=== PATIENT | female | born 1950 | race Two or more races ===

== ENCOUNTER 2022-08-10 12:46 | Inpatient (IN) | payer OTHER ==
[~2022-08-10] VITALS: Ht 160 cm; Wt 81.6 kg
== END 2022-09-29 17:04 | disposition home or self-care (01) | DRG 264 ==
LOC: ER 12:46 → SURH 20:58 → MEDJ 20:58 → SURG 20:58 → MEDJ 08-11 14:51 → SURG 08-12 22:10 → SURH 08-18 14:55
PROVIDERS: ADMIT Internal Medicine; ATTEND Internal Medicine
PROC: B44HZZZ Ultrasonography of Bilateral Lower Extremity Arteries (ICD-10-PCS; 2022-08-10)
PROC: 0JBR0ZZ Excision of Left Foot Subcutaneous Tissue and Fascia, Open Approach (ICD-10-PCS; principal; 2022-08-11)
PROC: 0HBNXZX Excision of Left Foot Skin, External Approach, Diagnostic (ICD-10-PCS; 2022-08-15)
PROC: 0HBNXZX Excision of Left Foot Skin, External Approach, Diagnostic (ICD-10-PCS; 2022-08-18)
PROC: 0JBR0ZZ Excision of Left Foot Subcutaneous Tissue and Fascia, Open Approach (ICD-10-PCS; 2022-08-30)
PROC: 0JBR0ZZ Excision of Left Foot Subcutaneous Tissue and Fascia, Open Approach (ICD-10-PCS; 2022-09-13)
PROC: 0JBR0ZZ Excision of Left Foot Subcutaneous Tissue and Fascia, Open Approach (ICD-10-PCS; 2022-09-20)
PROC: 02HV33Z Insertion of Infusion Device into Superior Vena Cava, Percutaneous Approach (ICD-10-PCS; 2022-09-22)
PROC: BQ3FZZZ Magnetic Resonance Imaging (MRI) of Left Lower Leg (ICD-10-PCS; 2022-09-27)
DX: I70.245 Atherosclerosis of native arteries of left leg with ulceration of other part of foot (principal); L03.116 Cellulitis of left lower limb; Z16.12 Extended spectrum beta lactamase (ESBL) resistance; Z16.24 Resistance to multiple antibiotics; L97.328 Non-pressure chronic ulcer of left ankle with other specified severity; I87.2 Venous insufficiency (chronic) (peripheral); G62.89 Other specified polyneuropathies; B96.4 Proteus (mirabilis) (morganii) as the cause of diseases classified elsewhere; B96.20 Unspecified Escherichia coli [E. coli] as the cause of diseases classified elsewhere; G62.9 Polyneuropathy, unspecified; E66.01 Morbid (severe) obesity due to excess calories; Z68.31 Body mass index [BMI] 31.0-31.9, adult; Z63.8 Other specified problems related to primary support group